=== PATIENT | male | born 1955 | race Caucasian/White ===

== ENCOUNTER → 2021-02-15 | Outpatient (CLI) | payer MEDICARE ==
[~2021-02-15] MED LIST: AUGMENTIN 875-1 EACH PO; AZITHROMYCIN250 MG PO
== END ==
LOC: RAD 07:50
DX: R04.2 Hemoptysis (principal); Z85.818 Personal history of malignant neoplasm of other sites of lip, oral cavity, and pharynx; Z85.89 Personal history of malignant neoplasm of other organs and systems
CPT/HCPCS: 74220

== ENCOUNTER 2021-03-06 22:56 | Emergency (ER) | payer MEDICARE, OTHER ==
[2021-03-07 00:38] LABS: HEMOGLOBIN 13.4 gm/dl (14.0-17.5); RED BLOOD COUNT 4.49 M/UL (4.20-5.50); WHITE BLOOD COUNT 3.4 K/UL (4.5-11.0)
[2021-03-07 00:48] LABS: BUN/CREATININE RATIO 22 (0-10)
[2021-03-07] MEDS ORDERED: AZITHROMYCIN250 MG PO (03:39)
[2021-03-07] MEDS ORDERED: AUGMENTIN 875-1 EACH PO (03:39)
== END 2021-03-07 03:57 | disposition home or self-care (01) ==
LOC: ER1 22:56
PROVIDERS: Family Medicine
DX: J43.9 Emphysema, unspecified (principal); E11.65 Type 2 diabetes mellitus with hyperglycemia; J18.9 Pneumonia, unspecified organism; R04.2 Hemoptysis; I48.91 Unspecified atrial fibrillation; Z95.0 Presence of cardiac pacemaker; Z79.01 Long term (current) use of anticoagulants; Z95.1 Presence of aortocoronary bypass graft
CPT/HCPCS: 80053; 82550; 82553; 83605; 83874; 83880; 84484; 85025; 85610; 93005; 99285; Q9967

== ENCOUNTER → 2021-04-20 | Outpatient (CLI) | payer MEDICARE, OTHER | LOC: RAD 08:27 | DX: R13.10 Dysphagia, unspecified (principal); C02.9 Malignant neoplasm of tongue, unspecified; K22.8 Other specified diseases of esophagus | CPT/HCPCS: 74230; 92611-GN ==

== ENCOUNTER → 2021-04-26 | Outpatient (CLI) | payer MEDICARE, OTHER | LOC: CT 07:28 | DX: R22.1 Localized swelling, mass and lump, neck (principal); R13.10 Dysphagia, unspecified; Z85.9 Personal history of malignant neoplasm, unspecified; R91.8 Other nonspecific abnormal finding of lung field; R91.1 Solitary pulmonary nodule; R59.0 Localized enlarged lymph nodes; T17.900A Unspecified foreign body in respiratory tract, part unspecified causing asphyxiation, initial encounter; Z98.890 Other specified postprocedural states; J90 Pleural effusion, not elsewhere classified | CPT/HCPCS: 70490 ==